=== PATIENT | female | born 1950 | race Caucasian/White ===

== ENCOUNTER 2016-07-08 01:41 | Inpatient (IN) | payer OTHER, MEDICARE ==
[~2016-07-08] VITALS: Ht 167.6 cm; Wt 63.5 kg
[~2016-07-08 01:41] MED LIST: BENICAR40 M1 PO; HYDRALAZINE HCL25 M1 PO; NORVASC2.5 M1 PO; PRAVACHOL40 M1 PO; VITAMIN D1000 UNI1 PO
[2016-07-08] MEDS ORDERED: HYDROCHLOROTHIA25 M1 PO (07:57)
--- NOTE | 2016-07-08 09:36 | Operative Report ---
Operative/Inv Procedure Report Surgery Date: 07/08/16 Name of Procedure: Right total knee arthroplasty Pre-Operative Diagnosis: Right knee primary osteoarthritis Post-Operative Diagnosis: Same Estimated Blood Loss: less than 50ml Surgeon/Triple Air Valve Tester: RAÚL MEDINA,Rigo CHAVARRIA Anesthesia: general endotracheal tube Implants: [place] triathlon total knee system--size 4 femur, size 3 tibia, 11 mm cruciate retaining polyethylene, 31 patella Drains: None Specimens: Femoral, tibial, patellar bone Microbiology: Urine Tourniquet: 55 minutes Complications: None Condition: Stable Operative Indication: Patient is a 65-year-old woman with a long history of gradually worsening right knee pain. She was diagnosed with end-stage osteoarthritis. She underwent treatment which included medications and to be modification and cortisone injection. She had ongoing symptoms despite conservative treatment. She experienced short-term relief from the conservative measures. She wished to proceed with total knee arthroplasty after discussion of risks, benefits and expectations which included but were not limited to persistent knee pain, need for substance surgery, infection, DVT, injury to blood vessel or nerve, anesthesia risks. Operative/Procedure Note Note: Patient was brought to the operating room and transferred to the operating table. Once under appropriate anesthesia the right lower extremity was prepped and draped in standard fashion. Preoperative IV antibiotic's reamed prophylactically. Right lower external he was elevated exsanguinated and tourniquet was inflated. Standard anterior incision was made for anticipated medial parapatellar approach. Incision was taken down sharply to the retinacular approach was used to enter the knee joint with minimal extension into the quadriceps tendon. The patella was subluxed osteophytes were excised. Remnants of the degenerative meniscal cartilages were excised. ACL was excised. Retractors were placed medially and laterally. Intramedullary drill was used to enter the canal for the intramedullary guide for the femoral cut. Degrees valgus cut was used. The cut was made after pinning the cutting block in position. The femur was incised was size 4. Size 4 cutting block was pinned in place and the femoral cuts were finished. I was satisfied with the femur. I turned my attention to the tibia. I used the external tibial alignment guide and pinned a cutting block at the appropriate rotation for a neutral cut from medial to lateral and reproducing patient's posterior slow-paced on preoperative templating and intraoperative measurements. Again soft tissues were protected including the PCL. PCL was recessed for balancing purposes. Patient had severe end-stage degenerative changes of medial and patellofemoral compartment. Tibia was incised was size 3. Trial reduction with a size 3 tibia a trial polyethylene and 4 femur was applied and knee was taken into full extension. I then measured the thickness of the patella and then removed the appropriate thickness and replaced with the 31 mm patella. 3 lug holes were drilled. The knee was taken through range of motion. Excellent patellar tracking. Rotation was marked on the tibia and 2 lug holes were drilled in the femur. Components were removed and then the bony surfaces were copiously irrigated after plugging the distal femur with the anterior chamfer bone to MINIMIZE postoperative hemarthrosis and swelling. After the surfaces were irrigated and dried cement was applied to the dry clean bony surfaces of the tibia. The size 3 tibia was impacted in place and excess cement was removed with curettes. Cement was applied to the dry clean bony surfaces of the distal femur and a size 4 femur was applied and excess cement was removed with curettes. A 9 mm polyethylene was inserted and the knee was taken out to full extension. Soft tissue balancing was equal but patient would likely need a 11 mm definitive insert which would be determined and confirm later on the case. Cement was applied to the dry clean bony surfaces of the patella. The size 31 patella was impacted in place and excess cement was removed with a knife. As the cement was hardening I did appear articular pericapsular injection of a combination of a cocktail which included ropivacaine with epinephrine and Toradol for postoperative pain and inflammation management. Once the cement was hardening took the knee through range of motion. Small pieces of excess cement were removed with osteotome. I trialed 11 mm insert as well. I was satisfied with the 11 mm insert which provided excellent stability in full extension mid flexion and patient and full flexion to gravity. Copious irrigation followed. The trial was removed and the tibial tray was irrigated and I made sure there was no remaining soft tissue, bone fragments or cement fragments within the tibial tray and then I impacted the definitive size 11 mm cruciate retaining polyethylene. The locking mechanism was confirmed. All retractors were removed. Copious irrigation followed. Tourniquet was deflated at 55 minutes. Hemostasis was obtained. No need for a drain. No need for lateral release. After of the level of closure there was copious irrigation. The retinacular incision and medial quadriceps incision was closed with interrupted #1 Vicryl suture. Subcutaneous tissues closed in 2 layers with 2-0 Vicryl and skin was closed with a running 3-0 Vicryl suture with the knee in flexion. Appropriate dressings were applied and patient was awakened and taken to recovery room in good condition. No intraoperative complications. Blood loss was less than 50 mL. Patient was under the TXA protocol Discharge Disposition: PACU
[2016-07-08 14:40] VITALS: BP 122/78
--- NOTE | 2016-07-08 15:10 | PN- Orthopedic ---
Subjective Subjective: Patient recently arrived from PACU. She complains of nausea. She has not been medicated since arrival as of yet. She is tolerating a few ice chips. Pain is under control. Otherwise denies headache, dizziness, chest pain, shortness of breath. Objective Vital Signs and I&Os Vital Signs Date Time Temp Pulse Resp B/P B/P Pulse O2 O2 Flow FiO2 Mean Ox Delivery Rate 07/08 1440 97.5 84 18 122/78 96 Nasal 2.0L Cannula Physical Exam: Gen.: Patient is resting, but easily arousable. No acute distress. Cardiac: Regular Pulmonary: Clear bilaterally. Extremities: The right lower extremity dressing is clean, dry, and intact. Lower extremity sensation is intact bilaterally. Patient is able to move her toes. Feet are warm. Strength of dorsiflexion and plantar flexion are 4 out of 5 on the left and 3 out of 5 on the right. Assessment/Plan Assessment/Plan Patient is a 65-year-old female, smoker with a history of hypertension and hyperlipidemia, who is now postoperative day #0 status post right total knee replacement. Plan: -Advance diet as tolerated. -Continue IV fluids for now. Zofran can be used as needed for nausea. -Keep Urena catheter in place overnight for I's and O's. -Pain control with morphine or Percocet as needed. On-Q pain catheter is in place for additional relief. -Coumadin for DVT prophylaxis. Follow up INR in the morning. Titrate Coumadin dose to keep INR 2-3. -PT consult for mobilization. Weight-bear as tolerated. -IV antibiotics x 24 hours for prophylaxis. -F/u cbc, lytes, and INR in AM. -Plan for dressing change on postoperative day #2. -Home meds have been resumed. Core Measures/Miscellaneous Urena Catheter Date In: 07/08/16 Still Needed? Yes Venous Thromboembolism VTE Risk Factors: Age > 40, Smoking, Surgery VTE Contraindications: No Contraindications VTE Diagnosis: No Beta Stevenson Is Beta Stevenson a Home Med? No Antibiotics Is Patient on Antibiotics? Yes If Yes: prophylaxis
--- NOTE | 2016-07-08 15:40 | NUR ---
Physical Therapy: Consult received. Pt POD 0 s/p R TKA. Pt currently c/o nausea and presents with wet cloth around [place]. Will defer evaluation at this time and follow up tomorrow morning. If patient feeling better later- nursing encouraged to mobilize pt if possible. Thank you.
--- NOTE | 2016-07-08 16:09 | Surgical Discharge Summary ---
Visit Information Visit Dates Admission Date: 07/08/16 Discharge Date: 07/10/16 History of Present Illness Chief Complaint: Right knee DJD/osteoarthritis, right knee pain Medical History Blood Transfusion Hx: No Cardiovascular: hypertension, MITRAL VALVE PROLAPSE Gastrointestinal: ACID REFLUX Musculoskeletal: osteoarthritis History of MRSA: No History of VRE: No History of CDIFF: No Isolation History: Standard Surgical History Pertinent Surgical History: knee replacement, R PARATHYROID GLAND Psychosocial History Where Do You Live? Home Who Do You Live With? Patient/Self What is Your Primary Language? [place] Review of Systems: See H&P Hospital Course Course Attending Physician: RAÚL MEDINA,AURA Primary Care Physician: DEBRA BALL MD Hospital Course: Patient was admitted to [facility] for elective surgery on 07/08/2016 and underwent right total knee. The patient tolerated the procedure well, without complications, and was started on Coumadin postoperatively for DVT prophylaxis.. The postoperative course remained uneventful. Pain was well controlled with oral pain medication, tolerated a regular diet, and voiding without difficulty. The patient was evaluated by physical therapy during admission, was deemed stable from a medical standpoint, and was discharged. Allergies: Coded Allergies: Penicillins (Intermediate, HIVES 07/05/16) red dye (Intermediate, HIVES 07/05/16) shellfish derived (Intermediate, HIVES 07/05/16) iodine (hives 06/28/16) Significant Procedures: 07/08/2016 right total knee replacement Disposition Summary Disposition Principal Diagnosis: Right knee DJD/osteoarthritis Additional Diagnosis: Hypertension, hyperlipidemia, active smoker Discharge Disposition: home health services Discharge Instructions General Discharge Information Code Status: Full Code Patient's Diet: Heart healthy Patient's Activity: You may ambulate as desired with rolling walker. Avoid strenuous activity and heavy lifting, pushing, or pulling. No driving while using narcotics. Follow-Up Instructions/Appts: Avoid bathing, but you may shower as desired. Dry dressing change once daily. Please check INR on postoperative day #1 and then twice weekly thereafter. Please titrate Coumadin dose to keep INR 2-3. Please follow-up with Aura Shoemaker MD at 2 weeks postop for staple removal. Please report any of the following symptoms to M.D.: Fever greater than 101, redness around the incision, drainage from the wound, chest pain, shortness of breath. Medications at Discharge Discharge Medications: Continue taking these medications: Cholecalciferol (Vitamin D3) (Vitamin D) 1,000 UNIT CAPSULE 1 ORAL Every Day Comments: NOT GIVEN IN HOSPITAL Olmesartan Medoxomil (Benicar) 40 MG TABLET 1 Tablet ORAL DAILY Comments: ANITHA GIVEN Last Taken: 07/10/16 Time: 9:00 AM Amlodipine (Norvasc) 2.5 MG TABLET 1 Tablet ORAL DAILY Comments: Last Taken: 07/10/16 Time: 9:00 am Pravastatin Sodium (Pravachol) 40 MG TABLET 1 Tablet ORAL DAILY Comments: Last Taken: 07/10/16 Time: 9:00 AM Hydrochlorothiazide (Hydrochlorothiazide) 25 MG TABLET 1 Tablet ORAL DAILY Comments: Last Taken: 07/10/16 Time: 9:00 AM Start taking the following new medications: Warfarin Sodium (Coumadin) 5 MG TABLET 1 Tablet ORAL DAILY Qty = 30 No Refills Instructions: TITRATE DOSE TO KEEP INR 2-3 Comments: Last Taken: 07/09/16 Time: 5:00 PM Hydrocodone/Acetaminophen (Vicodin 5-300 MG Tablet) 5 MG-300 MG TABLET 1-2 Tablet ORAL EVERY 4 HOURS NEEDED as needed for PAIN Qty = 36 No Refills Comments: Last Taken: 07/10/16 Time: 9:00 AM Docusate Sodium (Colace) 100 MG CAPSULE 1 Capsule ORAL TWICE DAILY as needed for CONSTIPATION Days = 7 No Refills Comments: Last Taken: 07/10/16 Time: 9:00 AM Polyethylene Glycol 3350 (Miralax) 17 GRAM POWD.PACK 1 Packet ORAL DAILY as needed for CONSTIPATION Days = 7 No Refills Comments: Last Taken: 07/10/16 Time: 9:00 AM
[2016-07-08] MEDS ORDERED: COLACE100 M1 PO (16:12)
[2016-07-08] MEDS ORDERED: COUMADIN5 M2 PO (16:12)
[2016-07-08] MEDS ORDERED: MIRALAX17 G1 PO (16:12)
[2016-07-08] MEDS ORDERED: VICODIN 5-3001 EACH PO (16:12)
--- NOTE | 2016-07-08 16:18 | Patient Discharge Instructions ---
Discharge Instructions General Discharge Information You were seen/treated for: Right knee DJD/osteoarthritis You had these procedures: Right total knee replacement Watch for these problems: Fever greater than 101, drainage, redness, inability to bear weight. Call Surgeon to remove: [place] (2 WEEKS) Do not soak the wound: Yes No bath, but you may shower: Yes Other wound care: Avoid bathing, but you may shower as desired. Dry dressing change once daily. Please check INR on postoperative day #1 and then twice weekly thereafter. Please titrate Coumadin dose to keep INR 2-3. Special Instructions: Please check INR daily, until therapeutic. Then check INR twice weekly. Please titrate Coumadin dose to keep INR 2-3. Diet Continue normal diet: Yes Recommended Diet: Heart Healthy Activity Full Activity/No Limits: No Activity Self Limited: Yes Pounds, do NOT lift more than: 5 Activity Limited to: Weight bear as tolerated Other activity limits: You may ambulate as desired with rolling walker. Avoid strenuous activity and heavy lifting, pushing, or pulling. No driving while using narcotics. Acute Coronary Syndrome Inclusion Criteria At DC or during hospital stay patient has or had the following: ACS DIAGNOSIS No Discharge Core Measures Meds if any: Prescribed or Continued at Discharge Meds if any: NOT Prescribed or Continued at Discharge Congestive Heart Failure Inclusion Criteria At DC or during hospital stay patient has or had the following: CHF DIAGNOSIS No Discharge Core Measures Meds if any: Prescribed or Continued at Discharge Meds if any: NOT Prescribed or Continued at Discharge Cerebrovascular accident Inclusion Criteria At DC or during hospital stay patient has or had the following: CVA/TIA Diagnosis No Discharge Core Measures Meds if any: Prescribed or Continued at Discharge Meds if any: NOT Prescribed or Continued at Discharge Venous thromboembolism Inclusion Criteria VTE Diagnosis No VTE Type NONE VTE Confirmed by (Test) NONE Discharge Core Measures - Per Current guidelines, there needs to be overlap - treatment for the first 5 days of Warfarin therapy. - If discharged on Warfarin prior to 5 days of - overlap therapy, the patient will need to be - assessed for post discharge needs including - *Post discharge parental anticoagulation - *Warfarin and/or parental anticoagulation education - *Follow up date to check INR post discharge At least 5 days overlap therapy as Inpatient No Meds if any: Prescribed or Continued at Discharge Note: Overlap Therapy is Warfarin and Anticoagulant Meds if any: NOT Prescribed or Continued at Discharge
[2016-07-08 18:21] VITALS: BP 100/60
--- NOTE | 2016-07-08 20:16 | NUR ---
PT ARRIVED TO FLOOR AT 1430. SON AT BEDSIDE. PT AXO, VERMA IN PLACE, ONQ GOING AT 10ML/HR. SURGICAL SITE WRAPPED WITH JEWEL WRAP. ICE APPLIED. PT NAUSAUS AND STILL FEELS NUMBNESS NEAR SURGICAL SITE. PATIENT HAS NOT GOTTEN UP WITH PT YET. MILD PAIN (MOSTLY DISCOMFORT). RESTING COMFORTABLY
[2016-07-08 20:42] VITALS: BP 111/60
[2016-07-08 22:41] VITALS: BP 101/71
[2016-07-09 06:13] VITALS: BP 110/70
--- NOTE | 2016-07-09 07:37 | PN- Orthopedic ---
See Addendum Subjective Subjective: The patient was seen this morning postoperatively day #1. She reports her pain is under adequate control however she complains that the operative leg feels extremely heavy. Objective Vital Signs and I&Os Vital Signs Date Time Temp Pulse Resp B/P B/P Pulse O2 O2 Flow FiO2 Mean Ox Delivery Rate 07/09 612 99.2 66 20 110/70 92 Room Air 07/08 2248 Room Air Room Air 07/08 2241 98.7 68 20 101/71 94 Room Air 07/08 2042 98.6 70 20 111/60 95 Room Air 07/08 1821 98.0 78 20 100/60 98 Nasal 2.0L Cannula 07/08 1522 Nasal 2.0L Cannula 07/08 1440 97.5 84 18 122/78 96 Nasal 2.0L Cannula Intake & Output 07/09 0800 / 0000 07/08 1600 07/08 0800 07/08 0000 07/07 1600 Intake Total 2000 950 Output Total 500 Balance 1500 950 Intake, IV 600 600 Intake, Oral 1400 350 Output, Urine 500 Patient 140 lb Weight Physical Exam: Gen.: Alert and in no obvious distress Skin: Warm and dry Extremities: Bilateral lower extremities are warm without calf tenderness or significant edema. Gross motor and sensory are intact. Right surgical dressing is clean, dry, and intact. His On-Q pain pump in place. Assessment/Plan Assessment/Plan Assessment: 65-year-old female status post right total hip arthroplasty postoperative day #1. The patient is progressing as expected and her pain is under adequate control. She has yet to work with physical therapy. Plan: Hep-Lock IV fluids and DC Urena catheter Follow-up morning laboratory studies and we dose Coumadin for an INR between 2 and 3 GI and DVT prophylaxis Continue current pain regiment Out of bed with physical therapy Keep On-Q pain pump in place First surgical dressing change tomorrow Core Measures/Miscellaneous Urena Catheter Date In: 07/08/16 Venous Thromboembolism VTE Risk Factors: Age > 40, Smoking, Surgery VTE Contraindications: No Contraindications VTE Diagnosis: No Beta Stevenson Is Beta Stevenson a Home Med? No Antibiotics Is Patient on Antibiotics? No
[2016-07-09 08:05] LABS: ABSOLUTE BASOPHIL COUNT 0 /CUMM (0.0-0.2); ABSOLUTE EOSINOPHIL COUNT 0 /CUMM (0.0-0.7); ABSOLUTE GRANULOCYTE CT 9.7 /CUMM (1.4-6.5); ABSOLUTE LYMPH COUNT 2.4 /CUMM (1.2-3.4); ABSOLUTE MONOCYTE COUNT 1.1 /CUMM (0.10-0.60); BASOPHIL % 0.1 % (0.0-2.0); EOSINOPHIL % 0.3 % (0-5); GRANULOCYTE % 72.7 % (42.2-75.2); HEMATOCRIT 32.8 % (37-47); MEAN CORPUSCULAR HGB 32.5 PG (27.0-31.0); MEAN CORPUSCULAR HGB CONC 34.1 G/DL (33.0-37.0); MEAN CORPUSCULAR VOLUME 95.2 FL (81.0-99.0); MEAN PLATELET VOLUME 10.4 FL (7.4-10.4); PLATELET COUNT 202 /CUMM (130-400); RBC DISTRIBUTION WIDTH 12.6 % (11.5-14.5); RED BLOOD CELL CT 3.45 /CUMM (4.20-5.40); WHITE BLOOD CELL COUNT 13.3 /CUMM (4.8-10.8)
[2016-07-09 08:11] LABS: PT 11.8 SEC (9.4-12.5)
[2016-07-09 22:16] VITALS: BP 120/68
[2016-07-10 01:55] VITALS: BP 120/70
[2016-07-10 06:58] VITALS: BP 120/76
--- NOTE | 2016-07-10 07:08 | PN- Orthopedic ---
See Addendum Subjective Subjective: Reports her leg feels "heavy". On q device removed this morning. Pain otherwise improves with vicodin. Reports out of bed, ambulating with rolling walker, without difficulty yesterday. No dizziness. No shortness of breath. No chest pains. Voiding well. +bm yesterday. She anticipates discharge to home tomorrow. Objective Vital Signs and I&Os Vital Signs Date Time Temp Pulse Resp B/P B/P Pulse O2 O2 Flow FiO2 Mean Ox Delivery Rate 07/10 0155 98.7 70 18 120/70 90 Room Air 07/09 2216 98.7 80 19 120/68 93 Room Air 07/09 1012 68 16 116/72 07/09 1012 68 16 11672 Intake & Output 07/10 0800 07/10 0000 07/09 1600 07/09 0800 07/09 0000 07/08 1600 Intake Total 924 771 0879 950 Output Total 1000 400 500 Balance -882 634 4846 950 Intake, IV 0 600 600 Intake, Oral 118 566 4471 350 Number 1 Bowel Movements Output, Urine 1000 400 500 Patient 140 lb Weight Physical Exam: General - alert & oriented x 3. comfortable. no acute distress. Lungs - clear bilaterally. no w/r/r. Cardiac - s1s2. reg. Abdomen - soft. nontender. Extremities - warm bilaterally. no c/c/e. dressing removed. incision approximated with steri strips. no erythema or exudates appreciated. calves soft and nontender b/l. nvi. Current Medications: Current Medications Sig/Cuauhtemoc Start time Last Medication Dose Route Stop Time Status Admin Acetaminophen/ 1 TAB Q4P PRN 07/08 1530 AC 03 Hydrocodone Bitart PO 0145 Acetaminophen/ 2 TAB Q4P PRN 07/08 1530 AC Hydrocodone Bitart PO Al Hydroxide/Mg 30 ML Q6P PRN 07/08 1445 AC Hydroxide PO Amlodipine Besylate 2.5 MG DAILY 07/09 1000 AC 07/09 PO 1012 Dextrose/Lactated 1,000 ML Q13H 07/08 1445 DC 07/09 Ringer's IV 0212 Docusate Sodium 100 MG BID 07/08 2200 AC 07/09 PO 2100 Hydrochlorothiazide 25 MG DAILY 07/09 1000 AC 07/09 PO 1012 Losartan Potassium 100 MG DAILY 07/09 1000 AC 07/09 PO 1012 Morphine Sulfate 2 MG Q3P PRN 07/08 144 AC IV Morphine Sulfate 4 MG Q3P PRN 07/08 1445 AC IV Nicotine 14 MG DAILY 07/09 1000 AC TOP Ondansetron HCl 4 MG Q6P PRN 07/08 144 AC IV Polyethylene Glycol 17 GM DAILY 07/09 1000 AC PO Pravastatin Sodium 40 MG DAILY 07/09 1000 AC 07/09 PO 1011 Senna/Docusate Sodium 2 TAB AT BEDTIME NEED.. 07/08 144 AC PO Warfarin Sodium 5 MG COUMADIN 1700 ONE 07/09 1700 DC 07/09 PO 07/09 1701 1647 Results Last 48 Hours of Labs: Laboratory Tests 07/10 07/09 0618 0705 Chemistry Sodium (137 - 145 mmol/L) 138 Potassium (3.5 - 5.1 mmol/L) 3.9 Chloride (98 - 107 mmol/L) 103 Carbon Dioxide (22 - 30 mmol/L) 25 Anion Gap (5 - 16) 10 BUN (7 - 17 mg/dL) 18 H Creatinine (0.5 - 1.0 mg/dL) 0.6 Estimated GFR (>60 ml/min) > 60 BUN/Creatinine Ratio (7 - 25 %) 30.0 H Coagulation PT (9.4 - 12.5 SEC) Pending 11.8 INR (0.90 - 1.19) Pending 1.13 Hematology CBC w Diff NO MAN DIFF REQ WBC (4.8 - 10.8 /CUMM) 13.3 H RBC (4.20 - 5.40 /CUMM) 3.45 L Hgb (12.0 - 16.0 G/DL) 11.2 L Hct (37 - 47 %) 32.8 L MCV (81.0 - 99.0 FL) 95.2 MCH (27.0 - 31.0 PG) 32.5 H RDW (11.5 - 14.5 %) 12.6 Plt Count (130 - 400 /CUMM) 202 MPV (7.4 - 10.4 FL) 10.4 Gran % (42.2 - 75.2 %) 72.7 Lymphocytes % (20.5 - 51.1 %) 18.3 L Monocytes % (1.7 - 9.3 %) 8.6 Eosinophils % (0 - 5 %) 0.3 Basophils % (0.0 - 2.0 %) 0.1 Absolute Granulocytes (1.4 - 6.5 /CUMM) 9.7 H Absolute Lymphocytes (1.2 - 3.4 /CUMM) 2.4 Absolute Monocytes (0.10 - 0.60 /CUMM) 1.1 H Absolute Eosinophils (0.0 - 0.7 /CUMM) 0 Absolute Basophils (0.0 - 0.2 /CUMM) 0 PUBS MCHC (33.0 - 37.0 G/DL) 34.1 Assessment/Plan Assessment/Plan This 65-year-old female is POD#2 s/p right total knee arthroplasty tolerating diet pain controlled on q removed. monitor subjective "heaviness" s/p removal on-q continue PT. f/u discharge recommendations f/u labs coumadin accordingly - dvt ppx dressing changed d/c planning likely for home with services tomorrow will d/w Core Measures/Miscellaneous Urena Catheter Date In: 07/08/16 Venous Thromboembolism VTE Risk Factors: Age > 40, Smoking, Surgery VTE Contraindications: No Contraindications VTE Diagnosis: No Beta Stevenson Is Beta Stevenson a Home Med? No Antibiotics Is Patient on Antibiotics? No
[2016-07-10 08:36] LABS: PT 18.8 SEC (9.4-12.5)
[2016-07-10 08:45] VITALS: BP 120/70
--- NOTE | 2016-07-10 13:55 | RADIOLOGY REPORT ---
EXAMINATION: XR KNEE, RIGHT CLINICAL INFORMATION: Status post right total knee arthroplasty. COMPARISON: Right knee done on 10/13/2015. TECHNIQUE: Two views of the right knee. FINDINGS: Postoperative changes of total right knee arthroplasty are noted, with intact hardware and satisfactory alignment. Multiple radiolucencies are noted within the soft tissues, consistent with immediate postsurgical change. IMPRESSION: Appropriate alignment of the right total knee arthroplasty.
== END 2016-07-10 13:20 | disposition home health service (06) | DRG 470 ==
LOC: SDA 01:41 → 2NB 01:41 → SDA 07:00 → ENRESERV 13:21 → 2NB 14:16 → ENPENDDIS 07-10 11:14 → 2NB 07-10 13:20
PROVIDERS: Physician Assistant Surgical; ADMIT Orthopaedic Surgery
PROC: 0SRC0J9 Replacement of Right Knee Joint with Synthetic Substitute, Cemented, Open Approach (ICD-10-PCS; principal; 2016-07-08)
DX: M17.11 Unilateral primary osteoarthritis, right knee (principal); I10 Essential (primary) hypertension; E20.9 Hypoparathyroidism, unspecified; I34.1 Nonrheumatic mitral (valve) prolapse; E78.5 Hyperlipidemia, unspecified; I45.10 Unspecified right bundle-branch block; F17.200 Nicotine dependence, unspecified, uncomplicated; K21.9 Gastro-esophageal reflux disease without esophagitis
CPT/HCPCS: 2NBSP; 36415; 73560-RT; 82436; 87086; 88305; 97110-GO; 97116-GO; 97161-GP; 97530-GO; C1713; J0131; J0171; J1630; J1885; J2405; J2795; J3370; J3490; J7040